=== PATIENT | male | born 1990 | race Caucasian/White ===

== ENCOUNTER 2023-05-30 08:43 | Emergency (ER) | payer MEDICAID ==
[~2023-05-30] VITALS: Ht 177.8 cm; Wt 110.0 kg
[2023-05-30 08:49] VITALS: O2SAT 96
[2023-05-30] MEDS ORDERED: ACETAMINOPHEN 325MG TABLET PO ONE (09:30)
[2023-05-30] MEDS ORDERED: KETOROLAC 60MG/2ML VIAL IM ONE (09:30)
[2023-05-30 12:08] VITALS: BP 138/58; PULSE 67; RESP 18; TEMP 98
== END 2023-05-30 12:11 | disposition home or self-care (01) ==
LOC: ER 08:43
DX: M54.2 Cervicalgia (principal)
CPT/HCPCS: 72125; 96372; 99285; J1885; Z7610 ×2

== ENCOUNTER 2023-07-02 18:48 | Emergency (ER) | payer MEDICAID ==
[~2023-07-02] VITALS: Ht 172.7 cm; Wt 118.0 kg
[2023-07-02 18:52] VITALS: BP 145/70; PULSE 86; RESP 20; TEMP 97.9; O2SAT 97
[2023-07-02] MEDS ORDERED: ACETAMINOPHEN 325MG TABLET PO ONE (19:15)
[2023-07-03] MEDS ORDERED: NAPR-681 MT (06:27)
== END 2023-07-02 22:26 | disposition home or self-care (01) ==
LOC: ER 18:48
DX: M25.572 Pain in left ankle and joints of left foot (principal); R07.89 Other chest pain
CPT/HCPCS: 71045; 73610; 99284

== ENCOUNTER 2023-07-03 03:07 | Emergency (ER) | payer BC, MEDICAID ==
[~2023-07-03] VITALS: Ht 170.2 cm; Wt 136.0 kg
[2023-07-03 03:39] VITALS: O2SAT 98
[2023-07-03] MEDS ORDERED: IBUPROFEN 400MG TABLET PO ONE (05:15)
[2023-07-03 05:22] VITALS: BP 132/74
[2023-07-03] MEDS ORDERED: NAPR-681 MT (06:27)
[2023-07-03 07:08] VITALS: PULSE 80; RESP 16; TEMP 98.8
== END 2023-07-03 07:12 | disposition home or self-care (01) ==
LOC: ER 03:07
DX: R07.81 Pleurodynia (principal)
CPT/HCPCS: 71101; 99283

== ENCOUNTER 2024-08-11 20:47 | Emergency (ER) | payer BC, MEDICAID ==
[~2024-08-11] VITALS: Ht 170.2 cm; Wt 127.0 kg
[~2024-08-11 20:47] MED LIST: NAPR-681 MT; SULF1TAB48 MT
[2024-08-11 20:52] VITALS: O2SAT 98
[2024-08-11] MEDS ORDERED: CEPH500T MT (22:47)
[2024-08-11 23:16] VITALS: BP 134/66; PULSE 107; RESP 18; TEMP 36.94740; O2SAT 98
== END 2024-08-11 23:18 | disposition home or self-care (01) ==
LOC: ER 20:57
DX: L03.113 Cellulitis of right upper limb (principal); Z98.890 Other specified postprocedural states
CPT/HCPCS: 99283